=== PATIENT | female | born 1980 | race African-American/Black ===

== ENCOUNTER 2020-09-16 12:12 | Inpatient (IN) ==
[2020-09-16] MEDS ORDERED: SODIUM CHLORIDE 0.9% 1,000 ML IV STA (14:04)
[2020-09-16] MEDS ORDERED: ONDANSETRON 4 MG/2 ML VIAL IV STA (14:05)
[2020-09-16 14:50] LABS: Basophils % 0.3 % (0.0-0.8); Hematocrit 38.4 VOL% (35.7-47.0); Hemoglobin 12.1 GM/DL (12.0-16.0); Immature Granulocytes % 1.2 %; Immature Granulocytes Absolute 0.13 #; Lymphocytes # 1.4 10*3/uL (1.4-4.0); Lymphocytes % 12.9 % (21.3-54.2); Mean Corpuscular HGB Conc 31.5 GM/DL (32-36); Mean Corpuscular Volume 77.6 FL (87-102); Mean Platelet Volume 9.3 FL (9.6-12.0); Monocytes % 10.7 % (1.7-12.7); Neutrophils % 74.9 % (38.7-73.9); Platelet Count 694 T/CUMM (130-400); Red Blood Count 4.95 MC/CUMM (3.8-5.5); Red Cell Distribution Width 15.9 % (9.3-17.3); White Blood Count 10.6 T/CUMM (4-12)
[2020-09-16 15:11] LABS: Albumin 3.2 G/DL (3.4-5.0); Bilirubin,Total 0.8 MG/DL (0.20-1.00); Calcium 9.3 MG/DL (8.5-10.1); Ferritin 320.2 ng/ml (8-252); Osmolality,Calculated 258.9 MOS/KG (273-304); Potassium 4.4 MMOL/L (3.5-5.1); Total Protein 9.3 G/DL (6.4-8.2)
[2020-09-16 15:25] LABS: Band Neutrophils 5 % (0-10); Lymphocytes 11 % (20-55); Nucleated Red Blood Cells 1 (0-5); Platelet Estimate Increased; Segmented Neutrophils 75 % (50-85); Total Cells Counted 100
[2020-09-16 15:26] LABS: Anisocytosis Slight
[2020-09-16] MEDS ORDERED: KETOROLAC 30 MG/1 ML VIAL IV STA (16:42)
[2020-09-16] MEDS ORDERED: KETOROLAC 30 MG/1 ML VIAL ONE (16:44)
[2020-09-16] MEDS ORDERED: AZITHROMYCIN INJ 500 MG in SODIUM CHLORIDE 0.9% 250 ML IV STA (17:04)
[2020-09-16] MEDS ORDERED: cefTRIAXone 1,000 MG in SODIUM CHLORIDE 0.9% 100 ML IV STA (17:04)
[2020-09-16] MEDS ORDERED: ACETAMINOPHEN 325 MG TABLET PO PRN (17:58)
[2020-09-16] MEDS ORDERED: DEXTROSE 50% 25 GM/50 ML VIAL IV PRN (17:58)
[2020-09-16] MEDS ORDERED: MORPHINE 2 MG/1 ML SYRINGE IV PRN (17:58)
[2020-09-16] MEDS ORDERED: GLUCAGON 1 MG VIAL IM PRN (17:58)
[2020-09-16] MEDS ORDERED: guaiFENesin/DM ER 600-30 MG TABLET PO PRN (17:58)
[2020-09-16] MEDS ORDERED: ONDANSETRON 4 MG/2 ML VIAL IV PRN (17:58)
[2020-09-16] MEDS ORDERED: diphenhydrAMINE CAP 25 MG CAPSULE PO PRN (17:58)
[2020-09-16] MEDS ORDERED: NICOTINE 21 MG/24 HR PATCH TRANSDERM PRN (17:58)
[2020-09-16] MEDS ORDERED: DOCUSATE SODIUM 100 MG CAPSULE PO PRN (17:58)
[2020-09-16] MEDS ORDERED: hydrALAZINE 20 MG/1 ML VIAL IV PRN (17:58)
[2020-09-16] MEDS ORDERED: ZALEPLON 5 MG CAPSULE PO PRN (17:58)
[2020-09-16] MEDS ORDERED: PROMETHAZINE 25 MG TABLET PO PRN (17:58)
[2020-09-16] MEDS ORDERED: ALBUTEROL INHALER 18 GM INH PRN (18:42)
[2020-09-16] MEDS: ENOXAPARIN 40 MG/0.4 ML SYRINGE SUBCUT SCH (19:37)
[2020-09-16] MEDS: SODIUM CHLORIDE 0.9% 1,000 ML IV SCH (19:44)
[2020-09-16] MEDS: ALBUTEROL INHALER 18 GM INH SCH ×2 (19:58→23:20)
[2020-09-16] MEDS: FAMOTIDINE 20 MG TABLET PO SCH (22:14)
[2020-09-16] MEDS: ASCORBIC ACID 500 MG TABLET PO SCH (22:15)
[2020-09-17 05:09] LABS: Basophils % 0.4 % (0.0-0.8); Eosinophils % 0.2 % (0.00-10.9); Hematocrit 32.6 VOL% (35.7-47.0); Immature Granulocytes % 1.4 %; Immature Granulocytes Absolute 0.11 #; Lymphocytes # 1.7 10*3/uL (1.4-4.0); Lymphocytes % 20.9 % (21.3-54.2); Mean Corpuscular HGB Conc 30.7 GM/DL (32-36); Mean Corpuscular Volume 78.4 FL (87-102); Mean Platelet Volume 9.1 FL (9.6-12.0); Neutrophils % 64.1 % (38.7-73.9); Platelet Count 572 T/CUMM (130-400); Red Blood Count 4.16 MC/CUMM (3.8-5.5); Red Cell Distribution Width 15.9 % (9.3-17.3); White Blood Count 8.1 T/CUMM (4-12)
[2020-09-17 05:43] LABS: Calcium 8.5 MG/DL (8.5-10.1); Potassium 4.1 MMOL/L (3.5-5.1)
[2020-09-17] MEDS: SODIUM CHLORIDE 0.9% 1,000 ML IV SCH ×3 (06:06→21:29)
[2020-09-17] MEDS: ALBUTEROL INHALER 18 GM INH SCH ×6 (06:06→23:05)
[2020-09-17 08:59] LABS: Ferritin 240.9 ng/ml (8-252)
[2020-09-17] MEDS: DEXAMETHASONE 4 MG/1 ML VIAL IV SCH (09:49)
[2020-09-17] MEDS: CHOLECALCIFEROL 1,000 UNIT TABLET PO SCH (09:50)
[2020-09-17] MEDS: PANTOPRAZOLE 40 MG TABLET PO SCH (09:50)
[2020-09-17] MEDS: ZINC GLUCONATE 50 MG TABLET PO SCH (09:50)
[2020-09-17] MEDS: ASCORBIC ACID 500 MG TABLET PO SCH ×2 (09:50→21:29)
[2020-09-17] MEDS: FAMOTIDINE 20 MG TABLET PO SCH ×2 (09:50→21:29)
[2020-09-17] MEDS: IVERMECTIN 3 MG TABLET PO SCH (09:57)
[2020-09-17] MEDS: ENOXAPARIN 40 MG/0.4 ML SYRINGE SUBCUT SCH (18:02)
[2020-09-18] MEDS: ALBUTEROL INHALER 18 GM INH SCH (04:14)
[2020-09-18 05:22] LABS: Basophils % 0.3 % (0.0-0.8); Eosinophils # 0.1 10*3/uL (0.0-0.87); Eosinophils % 0.6 % (0.00-10.9); Hematocrit 34.1 VOL% (35.7-47.0); Hemoglobin 10.2 GM/DL (12.0-16.0); Immature Granulocytes % 2.2 %; Immature Granulocytes Absolute 0.17 #; Lymphocytes # 2.5 10*3/uL (1.4-4.0); Lymphocytes % 31.3 % (21.3-54.2); Mean Corpuscular HGB Conc 29.9 GM/DL (32-36); Mean Corpuscular Volume 79.9 FL (87-102); Mean Platelet Volume 9.4 FL (9.6-12.0); Neutrophils % 54.6 % (38.7-73.9); Platelet Count 691 T/CUMM (130-400); Red Blood Count 4.27 MC/CUMM (3.8-5.5); White Blood Count 7.8 T/CUMM (4-12)
[2020-09-18 05:45] LABS: Calcium 8.6 MG/DL (8.5-10.1); Osmolality,Calculated 272.7 MOS/KG (273-304)
[2020-09-18 05:48] LABS: Ferritin 230.6 ng/ml (8-252)
[2020-09-18 06:18] LABS: Band Neutrophils 2 % (0-10); Eosinophils 1 % (0-10); Hypochromasia 1+; Lymphocytes 20 % (20-55); Microcytosis 1+; Segmented Neutrophils 65 % (50-85); Total Cells Counted 100
[2020-09-18 06:19] LABS: Platelet Estimate Increased
[2020-09-18] MEDS: PANTOPRAZOLE 40 MG TABLET PO SCH (09:11)
[2020-09-18] MEDS: FAMOTIDINE 20 MG TABLET PO SCH (09:11)
[2020-09-18] MEDS: CHOLECALCIFEROL 1,000 UNIT TABLET PO SCH (09:11)
[2020-09-18] MEDS: ZINC GLUCONATE 50 MG TABLET PO SCH (09:12)
[2020-09-18] MEDS: ASCORBIC ACID 500 MG TABLET PO SCH (09:12)
[2020-09-18] MEDS: DEXAMETHASONE 4 MG/1 ML VIAL IV SCH (09:12)
[2020-09-18] MEDS: IVERMECTIN 3 MG TABLET PO SCH (09:13)
[2020-09-18 12:28] VITALS: BP 116/74
== END 2020-09-18 15:16 | disposition home or self-care (01) | DRG 177 ==
LOC: N.ED 12:12 → SUATTDRO 17:58 → N.EDINP 17:58 → N.2E 09-17 02:42
PROVIDERS: ADMIT Internal Medicine; ATTEND Phlebology